=== PATIENT | female | born 1955 | race African-American/Black ===

== ENCOUNTER → 2016-11-15 | Day surgery (SDC) | payer OTHER ==
[~2016-11-15] MED LIST: ACET500T33 PO; HALO2TAB PO; HYDROmorphone 2 MG/ML VIAL IV PRN; IV RINGERS,LACTATED 1000ML 1,000 ML IV SCH; LIDOCAINE 1% 1 ML SYRINGE. ID PRN; LUBI8CAP3 PO; MORPHINE SULFATE 2 MG/ML DISP.SYRIN. IV PRN; MULT-245 PO; ONDANSETRON PF 4 MG/2 ML VIAL. IV PRN; OXCA300T PO; OXYB10TA PO; PROCHLORPERAZINE 10 MG/2 ML VIAL. IV PRN; PROPOFOL 40 ML IV ONE; fentaNYL PF VIAL 100 MCG/2 ML VIAL IV PRN
--- NOTE | 2016-11-15 10:39 | PDOC1 ---
HISTORY & PHYSICAL H&P Vito Milian. [id number] 1955 11/02/2016 02:00 PM 07/17 [facility] [address] [place], [place] [id number] Ph. [phone] Patient: Vito Milian Date of : 1955 Date: 11/02/2016 2:00 PM Visit Type: Consult This 61 year old female presents for H/o colorectal polyp and Constipation. History of Present Illness: 1. H/o colorectal polyp Prior screening: colonoscopy. Denies risk factors. Associated symptoms include constipation. Pertinent negatives include abdominal pain, change in bowel habits, change in stool caliber, decreased appetite, diarrhea, melena, nausea, rectal bleeding, vomiting, weight gain and weight loss. Additional information: No family history of colon cancer, No family history of Crohn's/ colitis, No NSAID/ASA use and history of colonic polyp removed 5 yrs ago. 2. Constipation The patient describes it as difficulty passing, feeling of fullness, hard, ribbon like and scybalous. Pertinent negatives include abdominal pain, change in stool caliber, nausea, vomiting, weight gain and weight loss. Additional information: Patient has significant constipation and has to be on stool softener and often time has to manually disimpact the stool. INTAKE COMMENTS: Intake Comments: Nurse Note: the pt is here today to schedule a colonoscopy due to a h/o colon polyps, the pts last colonoscopy was in 2011 and it was normal. She had a polyp in 2007. PROBLEM LIST: Problem Description Onset Date Hypotension, unspecified hypotension type 01/29/2016 Physical exam 01/29/2016 Type 2 diabetes mellitus with stage 1 chronic kidney disease, without long-term current use of insulin 01/29/2016 DJD (degenerative joint disease), ankle and foot, unspecified laterality 2015 Overactive bladder 02/24/2014 Renal disease 02/24/2014 Diabetes insipidus 02/24/2014 Hyperlipidemia LDL goal <100 01/29/2016 Benign meningioma 01/29/2016 Diabetes mellitus without complication 09/18/2009 Acute bronchitis 09/18/2009 Bipolar disorder 09/18/2009 Fibrocystic disease of breast 09/18/2009 PAST MEDICAL/SURGICAL HISTORY (Detailed) Disease/disorder Onset Date Management Date Comments Bipolar Diabetes Meningioma 2010 Meningioma s/p radiation 2012 OAB 2013 Renal disease GYNECOLOGIC HISTORY: Patient is postmenopausal. Postmenopausal age: 54. OBSTETRIC HISTORY: Not currently . Medications (Active): Started Medication Directions Instruction Stopped 11/02/2016 Colyte with Flavor Packs 240 gram-22.72 g-6.72 g-5.84 g oral solution drink 1 gallon by Oral route 08/24/2016 haloperidol 2 mg tablet take 1 tablet by oral route everyday at bedtime 04/01/2016 OneTouch Delica Lancets 33 gauge use to check BS DX: E11.9 04/01/2016 OneTouch Ultra Test strips instill 1 Strip by Injection route 2 times every day put strip in one touch glucometer 04/01/2016 OneTouch Ultra2 kit use to check BS as needed DX:E11.9 08/18/2016 oxcarbazepine 600 mg tablet take 1 tablet by oral route in the Morning and 2 tabs at bedtime 09/26/2016 OXYBUTYNIN ER 10MG TABLETS TAKE 1 TABLET BY MOUTH EVERY DAY 04/29/2016 Tylenol Arthritis Pain 650 mg tablet,extended release take 1 tablet by ORAL route every 8 hours as needed for pain in back Allergies: Ingredient Reaction Medication Name Comment PENICILLINS REVIEW OF SYSTEMS System Neg/Pos Details Constitutional Negative Chills, fever, malaise, weight gain and weight loss. ENMT Negative Sore throat. Eyes Negative Double vision. Respiratory Negative Dyspnea and wheezing. Cardio Negative Chest pain and irregular heartbeat/palpitations. GI Positive Constipation, See HPI. GI Negative Abdominal pain, change in bowel habits, change in stool caliber, decreased appetite, diarrhea, melena, nausea, see HPI, rectal bleeding and vomiting. Negative Dysuria and hematuria. Endocrine Negative Cold intolerance and heat intolerance. Psych Negative Anxiety. Integumentary Negative Hives and rash. MS Negative Joint pain. Hank/Lymph Negative Easy bleeding and easy bruising. Allergic/Immuno Negative Food allergies. VITAL SIGNS Time BP mm/Hg Pulse /min Resp /min Temp F Ht ft Ht in Ht cm Wt lb Wt kg BMI kg/ m2 BSA m2 O2 Sat% 2:17 PM 128/74 92 97.9 5.0 7.00 170.18 126.80 57.516 19.86 97 Time Measured by 2:17 PM [place] [place] PHYSICAL EXAM: Exam Findings Details Constitutional Normal Well developed. Eyes Normal Conjunctiva - Right: Normal, Left: Normal. Sclera - Right: Normal, Left: Normal. Nasopharynx Normal Lips/teeth/gums - Normal. Neck Exam Normal Inspection - Normal. Thyroid gland - Normal. Respiratory Normal Inspection - Normal. Auscultation - Normal. Cardiovascular Normal Regular rate and rhythm. No murmurs, gallops, or rubs. Vascular Normal Pulses - Carotids: Normal, Femoral: Normal, Dorsalis pedis: Normal. Abdomen Normal Inspection - Normal. Anterior palpation - No guarding. No abdominal tenderness. No hepatic enlargement. No splenic enlargement. No hernia. No Ascites. Skin Normal Inspection - Normal. Extremity Normal No edema. Psychiatric Normal Oriented to time, place, person, and situation. Appropriate mood and effect. The patient was checked out at 2:17 PM by Cleo Tipton. Assessment/Plan # Detail Type Description 1. Assessment Slow transit constipation (K59.01). Patient Plan Trial of Amitiza 24 mcg bid. If works then to send prescription. 2. Assessment History of colon polyps (Z86.010). Patient Plan schedule colonoscopy at [facility] with Radha martinez. Plan Orders Further diagnostic evaluations ordered today include(s) Colonoscopy to be performed today. She is to schedule a follow-up visit with Terri Krishnan MD upon completion of work-up Electronically signed by: Terri Krishnan MD 11/02/2016 03:36 PM Document generated by: Terri Krishnan 11/02/2016 03:36 PM Reno Dowell MD, Family Practice; Glenn Elias MD Internal Medicine; Bhargav Iglesias MD, Internal Medicine; Amanda Krishnan MD Internal Medicine; Terri Krishnan MD, Gastroenterology; Emmanuel Bell MD, Rheumatology, S. Dwaine Farrell, Physical Medicine/Rehab JBhavana Conn APRN ------ 11/15/16 Patient seen and examined. No change in H&P TERRI KRISHNAN MD November 15, 2016 10:38
--- NOTE | 2016-11-15 11:54 | PDOC4 ---
GI OP Report - Dr. Leggett Date/Time DATE: 11/15/16 TIME: 11:48 Attending Physician Anant Leggett MD Referring Physician Indications Personal history of colonic polyps, Constipation Pre-Op See the Anesthesia note for documentation of the administered medications Procedures Colonoscopy+bx Findings - One 5 mm polyp in the transverse colon. Biopsied. - The examination was otherwise normal on direct and retroflexion views. Plan - Discharge patient to home. - Patient has a contact number available for emergencies. The signs and symptoms of potential delayed complications were discussed with the patient. Return to normal activities tomorrow. Written discharge instructions were provided to the patient. - Resume regular diet. - Continue present medications. - Await pathology results. - Repeat colonoscopy in 3 - 5 years for surveillance. - Return to my office in 2 weeks. ANANT LEGGETT MD November 15, 2016 11:54
[2016-11-15 12:11] VITALS: BP 127/65
--- NOTE | 2016-11-16 14:46 | PATHOLOGY ---
PATHOLOGY REPORT * * * * * * * * FINAL DIAGNOSIS: Colon biopsy, transverse colon polyp: - Tubular adenoma. COMMENT: There is no high grade dysplasia or evidence of malignancy. (JPM:csd; d/t: 11/16/2016) REPORT ELECTRONICALLY SIGNED BY: Cristino Bryant M.D. DATE/TIME: 11/16/2016 14:44 * * * * * * * * GROSS PATHOLOGY: Received in formalin labeled "Vito Milian, transverse polyp," are two segments of galeana soft tissue measuring 0.8 x 0.5 x 0.1 cm in aggregate dimensions and ranging from 0.4 to 0.5 cm in maximum dimension. The specimen is submitted entirely in cassette A1. (CAA; 11/15/2016) INITIAL CPT CODE(S): A; 28326 Professional services performed [place] [email or web address] [address] Technical services performed by [facility] at [address] [place] [address], [facility] [address], [place] [address]. SPECIMEN(S) RECEIVED: A.Transverse colon biopsy CLINICAL HISTORY: History polyps PATIENT: VITO MILIAN /AGE: 6 1955 (Age: 61) PATIENT #: [id number] ALT CASE #: SPECIMEN COLLECTION DATE: 11/15/2016 SPECIMEN RECEIVED DATE: 11/15/2016 [facility] - [address] [place] [address] - PHONE: [phone] * * * END OF REPORT * * *
== END | disposition home or self-care (01) ==
LOC: ENDOS 10:05
PROVIDERS: ATTEND Internal Medicine Gastroenterology
DX: D12.3 Benign neoplasm of transverse colon (principal); F32.9 Major depressive disorder, single episode, unspecified; Z90.710 Acquired absence of both cervix and uterus; Z87.39 Personal history of other diseases of the musculoskeletal system and connective tissue
CPT/HCPCS: 45380; 88305; 99156; 99157; J2704